=== PATIENT | male | born 1950 | race Caucasian/White ===

== ENCOUNTER 2023-11-21 03:21 | Emergency (ER) | payer MEDICARE, OTHER, SELFPAY ==
[2023-11-21] VITALS (8 sets, daily range): BP systolic 100–129; BP diastolic 69–81; PULSE 60–95; RESP 14–17; TEMP 36.3; O2SAT 93–97; BMI 26.5
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
--- NOTE | 2023-11-21 04:48 | ED.RN ---
spoke to [facility] regarding pt's discharge status. Informed of anna eta of [id number]
[2023-11-21] MEDS: Ziprasidone IM 20 MG/ML VIAL IM (05:20)
== END 2023-11-21 07:45 | disposition home or self-care (01) ==
PROVIDERS: Emergency Provider Emergency Medicine; PCP Family Medicine; Visit Provider Emergency Medicine
DX: R45.1 Restlessness and agitation (principal); G30.9 Alzheimer's disease, unspecified; F02.80 Dementia in other diseases classified elsewhere, unspecified severity, without behavioral disturbance, psychotic disturbance, mood disturbance, and anxiety; I10 Essential (primary) hypertension; E78.5 Hyperlipidemia, unspecified; Z79.899 Other long term (current) drug therapy
CPT/HCPCS: 96372; 99282; J3486

== ENCOUNTER 2024-03-30 08:53 | Emergency (ER) | payer MEDICARE, OTHER, SELFPAY ==
[2024-03-30 08:54] VITALS: BP 118/77; PULSE 92; RESP 18; TEMP 36.1; O2SAT 95; BMI 30.5
--- NOTE | 2024-03-30 09:05 | CT_ITS ---
STUDY: CT ABDOMEN AND PELVIS WITH CONTRAST REASON FOR EXAM: Male, 74 years old. Left inguinal pain RADIATION DOSAGE (If Supplied By Facility): CTDIvol = ( 17.03 ) mGy, DLP = ( 1381.88 ) mGycm TECHNIQUE: Transaxial images were obtained from the dome of the diaphragm to the symphysis pubis without oral contrast. IV 100mL Isovue-370 was administered. Sagittal and coronal images were reconstructed. Individualized dose optimization techniques were used for this CT. COMPARISON: None. FINDINGS: Lung bases show interstitial edema with dependent atelectasis. The visualized portions of the heart are within normal limits. Normal liver. There is a solitary 1.5 cm gallstone. Normal spleen. Normal pancreas. Normal bilateral adrenal glands. No obstructive uropathy or suspicious solid renal lesion, there are simple bilateral renal cysts. Normal visualized stomach. Normal small intestine. Normal colon. The appendix is visualized and appears normal. Appendix seen on coronal recon images 50-57 Normal abdominal aorta. Normal inferior vena cava. Normal retroperitoneum. Normal urinary bladder. There are prostatic calcifications. There are large bilateral inguinal hernias, left greater than right both contain fat, vessels and bowel loops but there is no evidence of ileus obstruction or acute inflammation. Both hernias extend into the scrotum. Mild degenerative bony changes. CT/Abdomen/Pelvis W IV Cont ONLY IMPRESSION: Large bilateral inguinal hernias containing fat, abdominal vessels and bowel loops. However there is no evidence of obstruction, ileus or acute inflammation. Cholelithiasis, no CT evidence of acute cholecystitis Simple renal cysts, no specific follow-up needed. No free intraperitoneal fluid, air, or suspicious adenopathy, normal appendix visualized Electronically Signed: Jah Wesley MD at 10:44 EDT ,
--- NOTE | 2024-03-30 09:06 | EDS_ITS ---
HPI HPI - GI History of Present Illness Chief Complaint: Abd Pain Informant: patient and family Abdominal Pain/Flank Pain Onset: Today and Yesterday Context: Gradual Onset Timing: Continuous Quality: Aching Location: LLQ Current Severity: Mild Maximum Severity: Mild Nausea/Vomiting/Emesis GI Symptom: Negative for Nausea or Vomiting Diarrhea/Melena/Hematochezia GI Symptom: Negative for Diarrhea, Melena or Hematochezia Associated Symptoms Associated Symptoms: Negative for Dysuria, Frequency, Hematuria or Urgency Narrative Narrative: 74-year-old male history of dementia and hypertension. He has had left inguinal hernia surgery repair twice before the last 1 was about 5 years ago. Complaining of left lower quadrant abdominal pain at his hernia site. Also has had mild constipation recently. Denies any dysuria or fever. No vomiting. Patient is a limited informant due to his dementia. Family is at bedside and is assisting with the history. Prior similar symptoms: Yes Recent Illness/Hospitalization: No PFSH PFSH Medical History Hypertension Alzheimers disease Sleep apnea Anxiety Hyperlipemia Home Medications ?Medication ?Instructions ?Recorded ?Last Taken ?Type lorazepam 0.5 mg tablet 0.5 mg PO Q4H PRN PRN anxiety 11/21/23 Unknown History morphine concentrate 100 mg/5 mL 210 mg PO Q2H PRN PRN pain 11/21/23 Unknown History (20 mg/mL) oral solution Allergy/AdvReac Type Severity Reaction Status Date / Time salicylic acid (From P and S Allergy NEEDS Verified 03/30/24 09:04 (salicylic acid)) FOLLOW-UP Surgical History History of hernia surgery Social History Smoking Status: Unknown if ever smoked ROS ROS ED ROS Narrative Denies. Left lower quadrant inguinal hernia pain. Review of Systems ROS Unobtainable: Denies due to encephalopathy Constitutional Constitutional ED: Denies chills or fever(s) ENT ENT ED: Denies ear pain Cardiovascular Cardiovascular: Denies chest pain Respiratory/Chest Respiratory/Chest: Denies cough Gastrointestinal Gastrointestinal: Reports abdominal pain and constipation; Denies diarrhea, melena, nausea or vomiting Genitourinary Genitourinary ED: Denies dysuria or hematuria Musculoskeletal Musculoskeletal: Denies arthralgias Integumentary Denies abscess Neurologic Neurologic: Denies headache(s) Psychiatric Psychiatric: Denies anxiety Endocrine Endocrinology: Denies polydipsia Hematologic/Lymphatic Hematologic/Lymphatic: Denies easy bleeding Allergic/Immunologic Allergic/Immunologic ED: Denies mouth swelling EXAM Physical Exam Narrative Exam Narrative: 74-year-old male vital signs stable afebrile. Family bedside. H EENT exam unremarkable. Neck nontender. Lungs clear to auscultation. Heart regular rhythm rate about 90 no murmur. Abdomen soft. Nondistended. He does have a large left inguinal hernia that is tender to palpation. At this time I cannot reduce it. Right upper and right lower quadrants are unremarkable. Moving all 4 extremities. Nontender no edema. Neurologically is awake. He is alert. He does have dementia. So he is confused but he does follow commands. Const Vital Signs: 03/30/24 08:54 03/30/24 11:00 Temperature 97 F L Temperature Source Temporal Pulse Rate 92 65 Respiratory Rate 18 14 Blood Pressure 118/77 122/62 H Blood Pressure Mean 90 82 Pulse Ox 95 94 Oxygen Delivery Method Room Air Room Air Positive well nourished and well developed; Negative for cachectic, contractures or unkempt General Appearance ED: well developed and NAD; Negative for unkempt, cachectic or contractures Nutritional Appearance: Negative for cachectic HEENT Reports moist mucous membranes normocephalic and atraumatic; Negative for trauma or tenderness Eyes PERRL and EOMs intact bilaterally General Eye ED: Negative for pale conjunctiva or scleral icterus Neck no lymphadenopathy, supple and no JVD General: Negative for tenderness Carotids: Negative for other Resp normal respiratory effort and clear to auscultation bilaterally Effort and Inspection: Negative for respiratory distress Auscultation: Negative for rales, rhonchi, wheezes or diminished lung sounds Cardio regular rate, regular rhythm, S1 normal heart sound, S2 normal heart sound and no murmurs Rate: Negative for bradycardia or tachycardic Rhythm: Negative for abnormal rhythm GI non-distended and no masses; Negative for non-tender GI Narrative: Left inguinal hernia tender to palpation. Not reducible. Inspection: Negative for abdominal distention Auscultation: normoactive bowel sounds Palpation: soft and tender; Negative for guarding, rigid or rebound tenderness present Back/Spine no CVA tenderness Extremity full ROM General Extremety ED: Negative for edema or tenderness General Extremity: Negative for edema Neuro CN's II-XII intact bilaterally and moves all extremities Sensorium / Orientation: alert and oriented to person Motor Exam: strength 5/5 throughout Psych mental status grossly normal and thought process normal Appearance: Negative for unkempt Attitude: No agitated Mood & Affect: Negative for depressed, anxious or tearful Skin no wounds General Skin Exam: Negative for jaundice Lesions: no lesions Rashes: no rashes Trauma: Negative for abrasion Nails: Negative for discolored MDM MDM MDM Narrative Medical decision making narrative: 74-year-old male pain in his left inguinal hernia. May be incarcerated. Screening labs and CT are being obtained. I have general surgery on page for evaluation. Dr. Rolando Oconnor of general surgery was done in the emergency department and evaluated the patient around 9:40 AM. He tried to manually reduce his left inguinal hernia and was unsuccessful. He discussed with the patient and his family at bedside a potential plan. The patient is going to CAT scan and then we will go from there. CAT scan shows large bilateral inguinal hernias. Currently there is no o bstruction. Dr. Brock reviewed the CAT scan and then spoke to the patient and his . He did not feel the patient needed to be taken emergently to the operating room. This is more of chronic hernias. He will be discharged home with outpatient follow-up at a larger facility. Dr. Segura and the discussed this at length. Repeat exam patient is doing well at 11:15 AM. History & Record Review Discussion w/independent historian: Patient Lab Data Attestation: I reviewed the patient's lab results. Lab results narrative: CBC normal white count of 6.5. H&H of 14 and 44. Platelets 224. Chemistries show a gap of 5. BUN 24 creatinine 0.9. Glucose 122. Labs: Laboratory Results - last 24 hr 03/30/24 09:12 WBC 6.5 RBC 5.32 Hgb 14.8 Hct 44.9 MCV 84.4 MCH 27.8 MCHC 33.0 RDW Std Deviation 42.3 RDW Coeff of Fernando 13.7 Plt Count 224 MPV 9.2 Immature Gran % (Auto) 0.300 Neut % (Auto) 60.9 Lymph % (Auto) 27.7 Bennett % (Auto) 8.2 Eos % (Auto) 1.8 Baso % (Auto) 1.1 H Absolute Neuts (auto) 4.0 Absolute Lymphs (auto) 1.80 Nucleated RBC % 0 Sodium 139 Potassium 3.8 Chloride 105 Carbon Dioxide 29.0 Anion Gap 5 BUN 24 H Creatinine 0.97 Estim Creat Clear Calc 75.41 Est GFR (MDRD) Af Amer 98 Est GFR (MDRD) Non-Af 81 BUN/Creatinine Ratio 24.7 H Glucose 122 H Calcium 9.6 Radiography Diagnostic Testing: Clinical Impression(s) from Imaging Studies Abdomen/Pelvis CT 03/30/24 09:05 IMPRESSION: Large bilateral inguinal hernias containing fat, abdominal vessels and bowel loops. However there is no evidence of obstruction, ileus or acute inflammation. Cholelithiasis, no CT evidence of acute cholecystitis Simple renal cysts, no specific follow-up needed. No free intraperitoneal fluid, air, or suspicious adenopathy, normal appendix visualized Electronically Signed: Jah Wesley MD at 10:44 EDT Reading Location ID and State: [facility] / [place] , Service support , Discharge Plan Triage Chief Complaint: Abd Pain ED Provider: Palomo Guevara Dx/Rx/DC Orders Clinical Impression: Inguinal hernia Instructions: ED Hernia (Adult) Prescriptions: No Action morphine concentrate 100 mg/5 mL (20 mg/mL) solution 210 mg PO Q2H PRN PRN (Reason: pain) lorazepam 0.5 mg tablet 0.5 mg PO Q4H PRN PRN (Reason: anxiety) Primary Care Provider: Vi Higgins Referrals: Vi Higgins MD [Primary Care Provider] - Activity Restrictions/Additional Instructions: Follow-up with your general surgeons at [facility] to see if they think that they may want to do surgery on his hernias or let them be. Tylenol for pain. Print Language: Georgian Disposition Disposition: Home, Self Care
[2024-03-30 09:19] LABS: Basophil# 0.07 X10^3/uL; Basophil% 1.1 % (0-1); Eosinophil# 0.12 X10^3/uL; Eosinophils% 1.8 % (0-5); Hematocrit 44.9 % (40-54); Hemoglobin 14.8 g/dL (13.0-16.5); Lymphocyte % 27.7 % (19-41); Mean Corpuscular Hgb 27.8 pg (27.0-32.0); Mean Corpuscular Volume 84.4 fL (80-94); Mean Platelet Vol. 9.2 fl (6.2-12.0); Monocyte# 0.53 X10^3/uL; Monocyte% 8.2 % (0-10); NRBC Flagged by Analyzer 0 % (0-5); Neutrophil # 3.96 X10^3/uL (2.7-7.7); Neutrophil % 60.9 % (47-70); Platelet Count 224 K/mm3 (150-450); RBC Distribution Width CV 13.7 % (11.6-14.6); RBC Distribution Width SD 42.3 fl (35.1-43.9); Red Blood Count 5.32 M/mm3 (4.6-6.2); White Blood Count 6.5 K/mm3 (4.4-11.0)
[2024-03-30 09:34] LABS: Anion Gap 5 (5-15); BUN 24 mg/dL (7-18); BUN/Creat Ratio 24.7 RATIO (10-20); Calcium,Total 9.6 mg/dL (8.5-10.1); Chloride 105 mmol/L (98-107); Creatinine, Serum 0.97 mg/dL (0.70-1.30); EST Glomerular Filtration Rate 81 mL/min (>60); Est Glom Filt Rate - Afr Amer 98 mL/min (>60); Estimated Creatinine Clearance 75.41 ml/min; Glucose 122 mg/dL (74-106); Potassium 3.8 mmol/L (3.5-5.1); Sodium Level 139 mmol/L (136-145)
[2024-03-30 11:00] VITALS: BP 122/62; PULSE 65; RESP 14; O2SAT 94
[2024-03-30 11:26] VITALS: BP 125/97; PULSE 71; RESP 18; TEMP 36.4; O2SAT 96
== END 2024-03-30 11:27 | disposition home or self-care (01) ==
PROVIDERS: Emergency Provider Emergency Medicine; PCP Family Medicine; Visit Provider Emergency Medicine
DX: K40.20 Bilateral inguinal hernia, without obstruction or gangrene, not specified as recurrent (principal); F02.80 Dementia in other diseases classified elsewhere, unspecified severity, without behavioral disturbance, psychotic disturbance, mood disturbance, and anxiety; G30.9 Alzheimer's disease, unspecified; G47.30 Sleep apnea, unspecified
CPT/HCPCS: 74177; 80048; 85025; 99283; Q9967; A4216

== ENCOUNTER 2024-05-03 14:14 | Emergency (ER) | payer MEDICARE, OTHER, SELFPAY ==
[2024-05-03 14:15] VITALS: BP 106/69; PULSE 80; RESP 16; TEMP 36.2; O2SAT 100
--- NOTE | 2024-05-03 15:31 | CT_ITS ---
STUDY: CT ABDOMEN AND PELVIS WITH CONTRAST REASON FOR EXAM: Male, 74 years old. hernia pain -- postop right ing hernia repair day 8 RADIATION DOSAGE (If Supplied By Facility): CTDIvol = ( 13.58 ) mGy, DLP = ( 1429.14 ) mGycm TECHNIQUE: Transaxial images were obtained from the dome of the diaphragm to the symphysis pubis without oral contrast. IV 100mL Isovue-370 was administered. Sagittal and coronal images were reconstructed. Individualized dose optimization techniques were used for this CT. COMPARISON: March 30, 2024 FINDINGS: Mild bibasilar chronic interstitial thickening.. Heart size is normal. There is minor coronary artery calcification.. Mild nonspecific fatty infiltrated liver without mass or bile duct dilatation. Calcified gallstone demonstrated without pericholecystic edema. Normal spleen. Normal pancreas. Normal bilateral adrenal glands. Normal right kidney. Tiny cortical cyst in the left kidney which will not require additional imaging Normal visualized stomach. Normal small intestine. Normal colon. The appendix is visualized and appears normal. Minor atherosclerotic change of the aorta without evidence for aneurysm. Normal inferior vena cava. Normal retroperitoneum. Normal urinary bladder. Mild nonspecific enlargement of prostate There is a large left inguinal hernia containing both fat as well as loop of colon without evidence for proximal obstruction or incarceration. There is a large right inguinal hernia containing fat and vessels as well as diffuse heterogeneous soft tissue thickening likely representing postsurgical hemorrhage extending to the scrotal sac as well as a large hydrocele in the scrotal sac Normal osseous structures. CT/Abdomen/Pelvis W IV Cont ONLY IMPRESSION: Findings consistent with probable recurrent large right inguinal hernia containing extensive soft tissue thickening possibly representing hemorrhage extending to the scrotal sac as well as large coexisting hydrocele. Clinical correlation recommended Persistent large left inguinal hernia containing bowel without proximal obstruction or incarceration Electronically Signed: Aung Ji MD at 17:24 EDT ,
--- NOTE | 2024-05-03 15:33 | EDS_ITS ---
HPI History of Present Illness Chief Complaint: Abd Pain Informant: spouse/S.O. Narrative Narrative: History of dementia therefore informant is spouse. He had recurrent bilateral inguinal hernia. He was seen a month ago with CT scans due to pain that was nonobstructive. Spouse states was told it was an operable with his current status and had concerns for thin tissue. However she followed up with [facility] surgery that she found Dr. Reece through [place]. She states images were reviewed felt tissues were healthy enough for surgery. He is now 8 days postop right inguinal hernia repair. He was staying at home with spouse for extra care. She took him back to [place] 2 days ago. She states scrotum was much more smaller, however today they report he was pacing more and she was contacted. He is established with hospice for the past 1.5 years. This was an elective surgery from a cancellation from another patient. States today she evaluate scrotum is larger on the right side. There is been no vomiting. Reported multiple bowel movements yesterday at the facility. Reported he was only using Tylenol and Motrin and was told to use oxycodone only severely needed. Prior similar symptoms: [facility] Medical History Hypertension Alzheimers disease Sleep apnea Anxiety Hyperlipemia Home Medications ?Medication ?Instructions ?Recorded ?Last Taken ?Type lorazepam 0.5 mg tablet 0.5 mg PO Q4H PRN PRN anxiety 11/21/23 Unknown History morphine concentrate 100 mg/5 mL 210 mg PO Q2H PRN PRN pain 11/21/23 Unknown History (20 mg/mL) oral solution Allergy/AdvReac Type Severity Reaction Status Date / Time salicylic acid (From P and S Allergy NEEDS Verified 05/03/24 14:16 (salicylic acid)) FOLLOW-UP Surgical History History of hernia surgery Social History housing: [facility] Smoking Status: Never smoker ROS ROS ED Review of Systems ROS Unobtainable: other Details: Limited secondary to dementia. EXAM Physical Exam Const Vital Signs: 05/03/24 14:15 05/03/24 16:14 05/03/24 18:00 Temperature 97.1 F L Temperature Source Temporal Pulse Rate 80 79 80 Respiratory Rate 16 18 16 Blood Pressure 106/69 110/61 114/64 Blood Pressure Mean 81 77 80 Pulse Ox 100 99 Oxygen Delivery Method Room Air Positive well nourished and well developed Constitutional Narrative: Nontoxic baseline per spouse. Answers to his name. General Appearance ED: well developed and NAD HEENT Reports moist mucous membranes normocephalic and atraumatic Eyes EOMs intact bilaterally and conjunctivae normal General Eye ED: Yes normal appearance of both eyes Neck no lymphadenopathy and supple General: Negative for tenderness Chest Wall Chest: Negative for tenderness Resp normal respiratory effort and normal air movement Effort and Inspection: symmetric chest movement; Negative for respiratory d istress Cardio regular rate, regular rhythm and no murmurs Peripheral Pulses: pulses 2+ throughout GI normal to inspection, nondistended, normoactive bowel sounds and non-tender Palpation: Negative for guarding or rebound tenderness present Narrative: Baseball sized scrotum's bilaterally and symmetric, tender in the right side. There is ecchymosis patch noted left scrotal area. Extremity normal to inspection General Extremety ED: Negative for edema or tenderness General Extremity: Negative for edema Neuro no sensory deficits noted Neuro Narrative: Alert to person, baseline Sensorium / Orientation: awake and alert Skin no rashes or lesions noted and no wounds MDM MDM MDM Narrative Medical decision making narrative: Interventions / MDM: Differential diagnosis: Postop complication, recurrent hernia Diagnosis considered but do not suspect: Bowel obstruction however CT negative. My EKG interpretation: N/A Imaging independently reviewed and interpreted by myself: CT abdomen pelvis IV contrast: Recurrent hernia, hydrocele right side with questionable hemorrhage External documents reviewed: N/A Test considered but not ordered:N/A ED course: Vital stable nontoxic. From history reporting scrotal size is enlarged today. I am concerned that he may have reherniated on the right side. No vomiting. Lower suspicion for obstruction at this time. However with him being postop, we will check basic labs and obtain a CT scan IV contrast for further evaluation. Labs are stable. CT scan notes recurrent hernia hydrocele concerns for soft tissue thickening possibly representing hemorrhage extending to the scrotal sac. 1848: I spoke with on-call surgeon Dr. Brown, reviewed imagings. Discussed no ecchymosis on the right side of the scrotum more left-sided. He states no obstruction, this likely post surgical findings. He recommended outpatient follow-up with his surgeon at [facility]. Image studies were placed on a disk for spouse. Discussed no obstructions, no indication for emergent surgery required. He is on pain medicines at the facility. Spouse will call tomorrow for outpatient discussion. Re-evaluation: stable Disposition discussed with patient/family/significant other: Spouse Case discussed with consulting clinician: General Surgery This note was generated with [employer] dictation software. It may contain incorrect words, spelling, and punctuation that were not noted in checking the note before signing. Lab Data Attestation: I reviewed the patient's lab results. Labs: Laboratory Results - last 24 hr 05/03/24 15:08 WBC 7.0 RBC 4.23 L Hgb 11.9 L Hct 36.4 L MCV 86.1 MCH 28.1 MCHC 32.7 RDW Std Deviation 39.8 RDW Coeff of Fernando 12.8 Plt Count 265 MPV 9.2 Immature Gran % (Auto) 0.300 Neut % (Auto) 52.5 Lymph % (Auto) 32.5 [place] % (Auto) 12.7 H Eos % (Auto) 1.6 Baso % (Auto) 0.4 Absolute Neuts (auto) 3.7 Absolute Lymphs (auto) 2.26 Nucleated RBC % 0 Sodium 139 Potassium 3.8 Chloride 106 Carbon Dioxide 28.0 Anion Gap 5 BUN 18 Creatinine 0.95 Est GFR (MDRD) Af Amer 100 Est GFR (MDRD) Non-Af 83 BUN/Creatinine Ratio 19.0 Glucose 90 Calcium 9.5 Radiography Diagnostic Testing: Clinical Impression(s) from Imaging Studies Abdomen/Pelvis CT 05/03/24 15:31 IMPRESSION: Findings consistent with probable recurrent large right inguinal hernia containing extensive soft tissue thickening possibly representing hemorrhage extending to the scrotal sac as well as large coexisting hydrocele. Clinical correlation recommended Persistent large left inguinal hernia containing bowel without proximal obstruction or incarceration Electronically Signed: Aung Ji MD at 17:24 EDT , Discharge Plan Triage Chief Complaint: Abd Pain ED Provider: Andres Quesada Dx/Rx/DC Orders Clinical Impression: Recurrent inguinal hernia unilateral, Dementia, Hydrocele, right Instructions: ED Hernia (Adult) Prescriptions: No Action morphine concentrate 100 mg/5 mL (20 mg/mL) solution 210 mg PO Q2H PRN PRN (Reason: pain) lorazepam 0.5 mg tablet 0.5 mg PO Q4H PRN PRN (Reason: anxiety) Primary Care Provider: Vi Higgins Referrals: Vi Higgins MD [Primary Care Provider] - Activity Restrictions/Additional Instructions: Recurrent hernia right side with hydrocele and fluid. Discussed with surgeon here Dr. Brown, likely postsurgical changes and not hemorrhage. Follow-up with your surgeon through [facility]. Print Language: Estonian Disposition Disposition: Home, Self Care Discharge Date/Time: 05/03/24 19:08
[2024-05-03] MEDS: 0.9% Normal Saline (1000mL) 1,000 ML 125 ML IV (15:52)
[2024-05-03] MEDS: Morphine 2 MG/ML Syringe IV (15:53)
[2024-05-03] MEDS: Ondansetron 4 MG/2 ML Vial IV (15:53)
[2024-05-03 16:14] VITALS: BP 110/61; PULSE 79; RESP 18; O2SAT 99
[2024-05-03 16:14] LABS: Absolute Lymphocyte Count 2.26 X10^3/uL (0.83-4.51); Absolute Neutrophil Count 3.7 X10^3/uL (2.0-7.7); Basophil# 0.03 X10^3/uL; Basophil% 0.4 % (0-1); Eosinophil# 0.11 X10^3/uL; Eosinophils% 1.6 % (0-5); Hematocrit 36.4 % (40-54); Hemoglobin 11.9 g/dL (13.0-16.5); Lymphocyte # 2.26 X10^3/ul (0.83-4.51); Lymphocyte % 32.5 % (19-41); Mean Corp Hgb Conc 32.7 g/dL (32-36); Mean Corpuscular Hgb 28.1 pg (27.0-32.0); Mean Corpuscular Volume 86.1 fL (80-94); Mean Platelet Vol. 9.2 fl (6.2-12.0); Monocyte# 0.88 X10^3/uL; Monocyte% 12.7 % (0-10); NRBC Flagged by Analyzer 0 % (0-5); Neutrophil # 3.65 X10^3/uL (2.7-7.7); Neutrophil % 52.5 % (47-70); Platelet Count 265 K/mm3 (150-450); RBC Distribution Width CV 12.8 % (11.6-14.6); RBC Distribution Width SD 39.8 fl (35.1-43.9); Red Blood Count 4.23 M/mm3 (4.6-6.2)
[2024-05-03 16:28] LABS: Anion Gap 5 (5-15); BUN 18 mg/dL (7-18); Calcium,Total 9.5 mg/dL (8.5-10.1); Chloride 106 mmol/L (98-107); Creatinine, Serum 0.95 mg/dL (0.70-1.30); EST Glomerular Filtration Rate 83 mL/min (>60); Est Glom Filt Rate - Afr Amer 100 mL/min (>60); Glucose 90 mg/dL (74-106); Potassium 3.8 mmol/L (3.5-5.1); Sodium Level 139 mmol/L (136-145)
[2024-05-03 18:00] VITALS: BP 114/64; PULSE 80; RESP 16
== END 2024-05-03 19:08 | disposition home or self-care (01) ==
PROVIDERS: Emergency Provider Emergency Medicine; PCP Family Medicine; Visit Provider Emergency Medicine
DX: K40.21 Bilateral inguinal hernia, without obstruction or gangrene, recurrent (principal); F02.80 Dementia in other diseases classified elsewhere, unspecified severity, without behavioral disturbance, psychotic disturbance, mood disturbance, and anxiety; G30.9 Alzheimer's disease, unspecified; N43.3 Hydrocele, unspecified; I10 Essential (primary) hypertension; E78.5 Hyperlipidemia, unspecified
CPT/HCPCS: 74177; 80048; 85025; 96361; 96374; 96375; 99283; J7030; Q9967; A4216; J2405

== ENCOUNTER → 2024-07-27 04:00 | Outpatient (REF) | payer MEDICARE, OTHER, SELFPAY ==
[2024-07-27 08:33] LABS: Hematocrit 32.4 % (40-54); Mean Corpuscular Hgb 28.5 pg (27.0-32.0); Mean Corpuscular Volume 83.9 fL (80-94); Mean Platelet Vol. 9.7 fl (6.2-12.0); Platelet Count 214 K/mm3 (150-450); RBC Distribution Width CV 13.9 % (11.6-14.6); RBC Distribution Width SD 42.5 fl (35.1-43.9); Red Blood Count 3.86 M/mm3 (4.6-6.2); White Blood Count 4.7 K/mm3 (4.4-11.0)
[2024-07-27 08:37] LABS: International Normalized Ratio 1.1; Prothrombin Time (Protime)PT. 14.2 SECONDS (11.7-14.9)
[2024-07-27 09:08] LABS: AST(SGOT) 23 U/L (15-37); Alanine Aminotransfer ALT/SGPT 16 U/L (16-61); Albumin, Serum 3.6 g/dL (3.2-5.0); Alkaline Phosphatase 61 U/L (45-117); Anion Gap 9 (5-15); BUN 22 mg/dL (7-18); BUN/Creat Ratio 28.6 RATIO (10-20); Bilirubin, Direct 0.42 mg/dL (0.00-0.30); Calcium,Total 9.7 mg/dL (8.5-10.1); Chloride 109 mmol/L (98-107); Cholesterol 175 mg/dL (200); Creatinine, Serum 0.77 mg/dL (0.70-1.30); EST Glomerular Filtration Rate 106 mL/min (>60); Est Glom Filt Rate - Afr Amer 128 mL/min (>60); Globulin 3.5 g/dL (2.2-4.2); Glucose 107 mg/dL (74-106); High Density Lipoprotein 42 mg/dL; Potassium 3.5 mmol/L (3.5-5.1); Protein, Total 7.1 g/dL (6.4-8.2); Sodium Level 140 mmol/L (136-145); T4 Total, Thyroxin 7.8 ug/dL (4.5-12.1); Triglycerides 101 mg/dL; Very Low Density Lipoprotein 20 mg/dL (5-40)
[2024-07-27 09:36] LABS: BNP,B-Type NATRIURETIC PEPTIDE 15.6 pg/mL (0-100)
[2024-07-27 10:42] LABS: Hemoglobin A1c 4.7 % (3.8-5.6)
== END ==
LOC: OLS.BROOKB 04:00
PROVIDERS: PCP Family Medicine; Referring Provider Family Medicine; Visit Provider Family Medicine
DX: I10 Essential (primary) hypertension (principal); E78.5 Hyperlipidemia, unspecified; E03.9 Hypothyroidism, unspecified
CPT/HCPCS: 36415; 80053; 80061; 82140; 82248; 83036; 83880; 84436; 84443; 85027; 85610